=== PATIENT | female | born 1990 | race Two or more races ===

== ENCOUNTER 2017-03-10 22:38 | Emergency (ER) | payer OTHER ==
[~2017-03-10] VITALS: Ht 162.6 cm; Wt 95.3 kg
[2017-03-10] MEDS ORDERED: NKM (22:45)
[2017-03-10 23:07] LABS: APPEARANCE,URINE SLIGHTLY CLOUDY; KETONES,URINE NEGATIVE (NEGATIVE); LEUKOCYTE ESTERASE ,URINE 2+ (NEGATIVE); NITRITE,URINE NEGATIVE (NEGATIVE); PH,URINE 5 (4.5-8.0); PROTEIN,URINE 1+ (NEGATIVE); UROBILINOGEN,URINE 1 MG/DL (0.0-1.0)
[2017-03-10 23:30] LABS: BACTERIA,URINE FEW /HPF; SQUAMOUS EPITHELIAL CELL,UR FEW /LPF (NONE/OCC)
[2017-03-11] MEDS ORDERED: KEFLEX500 MG ORAL (00:41)
[2017-03-11] MEDS ORDERED: IBUPROFEN600 MG ORAL (00:41)
[2017-03-11 00:48] VITALS: BP 131/77
--- NOTE | 2017-03-11 01:41 | Emergency Room Report ---
History of Present Illness General Chief Complaint: Abdominal Pain Source: Patient Present Illness HPI 26-year-old female presents to ED complaining of lower abdominal pain and back pain x2 days. Notes pain in her lower back radiating around the front. Throbbing, 10 out of 10. No aggravating or relieving factors. Denies dysuria or hematuria. Denies nausea or vomiting. Denies fevers or chills. No other aggravating or relieving factors. Denies any other associated symptoms Allergies: Coded Allergies: No Known Allergies (Unverified , 03/10/17) Patient History Past Medical History: none Past Surgical History: none Pertinent Family History: none Social History: Denies: alcohol use, drug use, smoking Last Menstrual Period: February Now: No Immunizations: UTD Reviewed Nursing Documentation: PMH: Agreed, PSxH: Agreed Nursing Documentation-PMH Past Medical History: No Stated History Review of Systems All Other Systems: negative except mentioned in HPI Physical Exam Vital Signs Date Time Temp Pulse Resp B/P Pulse Ox O2 Delivery O2 Flow Rate FiO2 03/10/17 22:42 98.2 118 18 131/77 98 Room Air Sp02 EP Interpretation: reviewed, normal General Appearance: no apparent distress, alert, GCS 15, non-toxic Head: normocephalic Eyes: bilateral eye PERRL, bilateral eye normal inspection ENT: normal ENT inspection Neck: normal inspection Respiratory: normal inspection Cardiovascular #1: normal inspection Gastrointestinal: normal bowel sounds, soft, non-distended, no guarding, no rebound, tenderness - suprapubic Rectal: deferred Genitourinary: CVA tenderness (R), CVA tenderness (L) Musculoskeletal: tender - paraspinal lumbar tenderness Neurologic: alert, oriented x3, responsive, motor strength/tone normal, sensory intact, speech normal Psychiatric: normal inspection Skin: normal inspection Lymphatic: normal inspection Medical Decision Making Diagnostic Impression: Primary Impression: UTI (urinary tract infection) Qualified Codes: N39.0 - Urinary tract infection, site not specified Additional Impression: Ovarian cyst Qualified Codes: N83.202 - Unspecified ovarian cyst, left side ER Course Hospital Course 26-year-old F presents to ED with lower abdominal pain + back pain Differential diagnosis includes- UTI, cystitis, pyelonephrits, kidney stone Clinical course Patient placed on stretcher. After initial history and physical I ordered UA UA shows + blood, some bacteria concern for kidney stone giving radiating pain CT scan shows no evidence of kidney stone, however there is a small L ovarian cyst with free fluid I feel this is a highly complex case requiring extensive working including EKG/ Rhythm strip, Xray/CT/US, Blood/urine lab work, repeat exams while in ED, and administration of strong opiates/narcotics for pain control, admission to hospital or close patient follow up. Diagnosis - UTI, ovarian cyst Stable and discharged to home with Rx Keflex, Motrin. Followup with PMD. Return to ED if symptoms recur or worsen Labs Test 03/10/17 22:48 Urine Color Pale yellow Urine Appearance Slightly cloudy Urine pH 5 (4.5-8.0) Urine Specific [place] 1.020 (1.005-1.035) Urine Protein 1+ (NEGATIVE) Urine Glucose (UA) Negative (NEGATIVE) Urine Ketones Negative (NEGATIVE) Urine Occult Blood 4+ (NEGATIVE) Urine Nitrite Negative (NEGATIVE) Urine Bilirubin Negative (NEGATIVE) Urine Urobilinogen 1 MG/DL (0.0-1.0) Urine Leukocyte Esterase 2+ (NEGATIVE) Urine RBC 2-4 /HPF (0 - 2) Urine WBC 10-15 /HPF (0 - 2) Urine Squamous Epithelial Cells Few /LPF (NONE/OCC) Urine Bacteria Few /HPF (NONE) Urine HCG, Qualitative Negative CT/MRI/US Diagnostic Results CT/MRI/US Diagnostic Results : Imaging Test Ordered: CT A/P Impression no evidence of kidney stone. L ovarian cyst with free fluid Last Vital Signs Date Time Temp Pulse Resp B/P Pulse Ox O2 Delivery O2 Flow Rate FiO2 03/11/17 00:48 98.2 18 131/77 98 Room Air 03/10/17 22:42 118 Status: improved Disposition: HOME, SELF-CARE Condition: Stable Scripts Ibuprofen* (MOTRIN*) 600 Mg Tablet 600 MG ORAL Q8H Y for For Pain, #30 TAB 0 Refills Prov: KILEY MICHELLE M.D. 03/11/17 Cephalexin* (KEFLEX*) 500 Mg Capsule 500 MG ORAL Q6H, #28 CAP 0 Refills Prov: KILEY MICHELLE M.D. 03/11/17 Patient Instructions: Ovarian Cyst, [id number], Dysuria KILEY MICHELLE M.D. March 11, 2017 01:41
--- NOTE | 2017-03-12 10:54 | Diagnostic Imaging Report ---
Indication: Abdominal pain Technique: Continuous helical transaxial imaging of the abdomen and pelvis was obtained from the lung bases to the pubic symphysis. No intravenous contrast was administered. Coronal 2-D reformats were also obtained. Total Dose length Product (DLP): [address] Dose Index Volume (CTDIvol): 29 mGy Comparison: none Findings: Lung bases are clear. The appendix is normal. There is no nephrolithiasis or hydronephrosis demonstrated. Gallbladder is unremarkable in appearance. The lung bases appear clear. Suggestion of a small left ovarian cyst. Consider ultrasound for further evaluation. There is no free fluid or free air. Suggestion of the L4-5 disc herniation best appreciated on sagittal reconstructions. Consider evaluation with MRI as warranted clinically. Impression: Apparent L4-5 disc herniation. Please correlate clinically. MRI examination may be of benefit. Normal appendix Suggestion of a left ovarian cyst. Evaluation of the current study as obtained is limited. Evaluation with ultrasound may be of benefit as warranted clinically. [facility] has communicated the preliminary results to the Emergency Department. Their findings are largely concordant with this report. The CT scanner at [facility] is accredited by the [employer] and the scans are performed using protocols designed to limit radiation exposure to as low as reasonably achievable to attain images of sufficient resolution adequate for diagnostic evaluation.
== END 2017-03-11 00:50 | disposition home or self-care (01) ==
LOC: EMR 23:02
DX: N39.0 Urinary tract infection, site not specified (principal); N83.202 Unspecified ovarian cyst, left side
CPT/HCPCS: 74176; 81003; 81025; 87086; 87181; 99284